=== PATIENT | male | born 1955 | race Caucasian/White ===

== ENCOUNTER → 2021-07-14 | Day surgery (SDC) | payer MEDICARE ==
[2021-07-12 11:10] VITALS: BMI 33.6
[~2021-07-14] MED LIST: LACTATED RINGERS 1,000 ML IV SCH; PROPOFOL 10 MG/ML 20 ML VIAL IV ONE
[2021-07-14 09:57] VITALS: TEMP 97.2
--- NOTE | 2021-07-14 10:37 | P.PCN ---
Date of Procedure: 07/14/21 Procedure(s) Performed: BRIEF HISTORY: Patient is a 65-year-old pleasant white male scheduled for an elective colonoscopy as a part of evaluation of prior history of colon polyps. Last colonoscopy was 5 years ago. PROCEDURE PERFORMED: Colonoscopy. PREOPERATIVE DIAGNOSIS: History of colon polyps. IV sedation per Anesthesia. PROCEDURE: After informed consent was obtained, the patient, was brought into the endoscopy unit. IV sedation was administered by Anesthesia under continuous monitoring. Digital rectal examination was normal. Initially the Olympus CF-160 flexible video colonoscope was then inserted in the rectum, gradually advanced into the cecum without any difficulty. Careful examination was performed as the scope was gradually being withdrawn. Ileocecal valve and the appendiceal orifice were visualized and appeared normal. Prep was excellent. Mucosa of the cecum, ascending colon, transverse colon, descending colon, sigmoid colon, and rectum appeared normal. Scattered sigmoid diverticulosis. Retroflexion was performed in the rectum and no lesions were seen. The patient tolerated the procedure well. IMPRESSION: Normal-appearing colon from rectum to cecum with no evidence of colorectal neoplasia. Scattered sigmoid diverticula RECOMMENDATIONS: Findings of this examination were discussed with the patient and his family. He was advised to have a repeat screening colonoscopy in 5 years because of the prior history of colon polyps.
[2021-07-14 10:51] VITALS: RESP 16
[2021-07-14 10:59] VITALS: BP 125/88; PULSE 66
== END ==
LOC: ORWHC2ENDO 09:05
PROVIDERS: ATTEND Internal Medicine Gastroenterology
DX: Z12.11 Encounter for screening for malignant neoplasm of colon (principal); K57.30 Diverticulosis of large intestine without perforation or abscess without bleeding; Z86.010 Personal history of colon polyps; Z79.82 Long term (current) use of aspirin; Z79.899 Other long term (current) drug therapy; E78.5 Hyperlipidemia, unspecified; I10 Essential (primary) hypertension; Z85.46 Personal history of malignant neoplasm of prostate
CPT/HCPCS: J2704; G0105; 45378